=== PATIENT | female | born 1945 | race Caucasian/White ===

== ENCOUNTER → 2024-05-06 | Outpatient (CLI) | payer MEDICARE, MEDICAID, SELFPAY ==
[2024-05-06 11:42] LABS: Collection Type, Urine Clean Catch
[2024-05-06 11:43] LABS: Basophils % (Auto) 1 % (0-2.5); Eosinophils # (Auto) 0.1 Thou/mm3 (0.0-0.5); Eosinophils % (Auto) 1 % (0-10); Hematocrit 38.6 % (36.0-46.0); Hemoglobin 12.8 g/dL (12.0-16.0); Immature Granulocytes % (Auto) 0 % (0-0); Immature Granulocytes Auto 0.02 Thou/mm3 (0.00-0.00); Lymphocytes # (Auto) 1.7 Thou/mm3 (1.0-4.8); Lymphocytes % (Auto) 28 % (10-50); Mean Corpuscular HGB Conc 33.2 g/dl (31.0-37.0); Mean Corpuscular Hemoglobin 28.9 pg (25.0-35.0); Mean Corpuscular Volume 87 fL (80-100); Monocytes # (Auto) 0.6 Thou/mm3 (0.0-0.8); Monocytes % (Auto) 9 % (0-12); Neutrophils # (Auto) 3.5 Thou/mm3 (1.8-7.7); Neutrophils % (Auto) 60 % (37-80); Nucleated Red Blood Cell % 0 /100 WBC (0); Platelet Count 280 Thou/mm3 (140-440); RDW Standard Deviation 42.4 fL (36.4-46.3); Red Blood Count 4.43 Miln/mm3 (4.00-5.20); White Blood Count 5.9 Thou/mm3 (3.6-11.0)
[2024-05-06 11:50] LABS: Glucose Estimated Average 126 mg/dL (80-131)
[2024-05-06 11:57] LABS: Parathyroid Hormone Intact 141.2 pg/ml (18.5-88.0)
[2024-05-06 12:06] LABS: Alanine Aminotransferase 16 U/L (10-49); Albumin, Serum 4.6 gm/dL (3.4-4.8); Albumin/Globulin Ratio 2.6 (1.2-2.2); Alkaline Phosphatase 93 U/L (46-116); Anion Gap 8 (7-16); Aspartate Amino Transferase < 10 U/L (0-34); BUN/Creatinine Ratio 12 Ratio (12-20); Bilirubin,Total 0.5 mg/dL (0.3-1.2); Blood Urea Nitrogen 11 mg/dL (9-23); Carbon Dioxide 31.4 mMol/L (20.0-31.0); Chloride 103 mMol/L (98-107); Cholesterol 104 mg/dL (132-200); Creatinine (Component) 0.9 mg/dL (0.6-1.3); Globulin 1.8 gm/dL (2.3-3.5); Glucose 105 mg/dL (74-106); HDL Cholesterol 52 mg/dL (40-60); LDL Cholesterol,Calculated 30 mg/dL (0-130); Osmolality,Calculated 282 (275-295); Phosphorous 4.5 mg/dL (2.4-5.1); Potassium 4.8 mMol/L (3.4-5.1); Sodium 142 mMol/L (136-145); Thyroid Stimulating Hormone 2.03 uIU/mL (0.55-4.78); Total Protein 6.4 gm/dL (5.7-8.2); Triglycerides 112 mg/dL (30-150); eGFR > 60 See Note
[2024-05-06 12:39] LABS: Bilirubin,Urine Negative (Negative); Blood,Urine Negative (Negative); Clarity,Urine Clear (Clear/Hazy); Color,Urine Lt-Yellow (Lt Yel-Yel); Glucose, Urine Negative (Negative); Ketones,Urine Negative (Negative); Leukocyte Esterase,Urine Positive (Negative); Nitrite,Urine Negative (Negative); Protein,Urine Negative (Neg - Trace); RBC,Urine 3 /hpf (0-3); Specific Gravity,Urine 1.012 (1.001-1.035); Squamous Epithelial Cell,Urine 5 /hpf (0-5); Urobilinogen,Urine Negative mg/dL (0.0-1.0); WBC,Urine 33 /hpf (0-5)
== END | disposition home or self-care (01) ==
PROVIDERS: PCP Internal Medicine; Referring Provider Internal Medicine; Visit Provider Internal Medicine
DX: I10 Essential (primary) hypertension (principal); E78.5 Hyperlipidemia, unspecified; E83.52 Hypercalcemia
CPT/HCPCS: 36415; 80053; 80061; 81001; 83036; 83970; 84100; 84443; 85025

== ENCOUNTER → 2024-07-16 | Outpatient (CLI) | payer MEDICARE, MEDICAID, SELFPAY ==
[2024-07-16 12:16] LABS: Basophils % (Auto) 0 % (0-2.5); Eosinophils # (Auto) 0.1 Thou/mm3 (0.0-0.5); Eosinophils % (Auto) 2 % (0-10); Hematocrit 39.7 % (36.0-46.0); Immature Granulocytes % (Auto) 0 % (0-0); Immature Granulocytes Auto 0.01 Thou/mm3 (0.00-0.00); Lymphocytes # (Auto) 1.8 Thou/mm3 (1.0-4.8); Lymphocytes % (Auto) 32 % (10-50); Mean Corpuscular HGB Conc 32.7 g/dl (31.0-37.0); Mean Corpuscular Hemoglobin 28.2 pg (25.0-35.0); Mean Corpuscular Volume 86 fL (80-100); Monocytes # (Auto) 0.5 Thou/mm3 (0.0-0.8); Monocytes % (Auto) 9 % (0-12); Neutrophils # (Auto) 3.2 Thou/mm3 (1.8-7.7); Neutrophils % (Auto) 56 % (37-80); Nucleated Red Blood Cell % 0 /100 WBC (0); Platelet Count 223 Thou/mm3 (140-440); RDW Standard Deviation 42.1 fL (36.4-46.3); Red Blood Count 4.61 Miln/mm3 (4.00-5.20); White Blood Count 5.7 Thou/mm3 (3.6-11.0)
[2024-07-16 12:23] LABS: Glucose Estimated Average 126 mg/dL (80-131)
[2024-07-16 12:43] LABS: Parathyroid Hormone Intact 87.4 pg/ml (18.5-88.0)
[2024-07-16 12:43] LABS: Collection Type, Urine Clean Catch
[2024-07-16 12:55] LABS: Alanine Aminotransferase 14 U/L (10-49); Albumin, Serum 4.3 gm/dL (3.4-4.8); Albumin/Globulin Ratio 2.3 (1.2-2.2); Alkaline Phosphatase 89 U/L (46-116); Anion Gap 7 (7-16); Aspartate Amino Transferase < 10 U/L (0-34); BUN/Creatinine Ratio 19 Ratio (12-20); Bilirubin,Total 0.6 mg/dL (0.3-1.2); Blood Urea Nitrogen 15 mg/dL (9-23); Calcium 8.8 mg/dL (8.3-10.6); Calcium (Corrected) 8.8 mg/dL (8.5-10.1); Carbon Dioxide 30.1 mMol/L (20.0-31.0); Cardiac Risk Estimate 2.2 RATIO (3.7-5.6); Chloride 105 mMol/L (98-107); Cholesterol 124 mg/dL (132-200); Creatinine (Component) 0.8 mg/dL (0.6-1.3); Globulin 1.9 gm/dL (2.3-3.5); Glucose 116 mg/dL (74-106); HDL Cholesterol 57 mg/dL (40-60); LDL Cholesterol,Calculated 41 mg/dL (0-130); Osmolality,Calculated 284 (275-295); Phosphorous 4.4 mg/dL (2.4-5.1); Potassium 4.8 mMol/L (3.4-5.1); Sodium 142 mMol/L (136-145); Total Protein 6.2 gm/dL (5.7-8.2); Triglycerides 131 mg/dL (30-150); eGFR > 60 See Note
[2024-07-16 13:15] LABS: Bilirubin,Urine Negative (Negative); Blood,Urine Negative (Negative); Clarity,Urine Clear (Clear/Hazy); Color,Urine Lt-Yellow (Lt Yel-Yel); Glucose, Urine Negative (Negative); Ketones,Urine Negative (Negative); Leukocyte Esterase,Urine Negative (Negative); Nitrite,Urine Negative (Negative); Protein,Urine Negative (Neg - Trace); RBC,Urine 3 /hpf (0-3); Specific Gravity,Urine 1.016 (1.001-1.035); Squamous Epithelial Cell,Urine < 1 /hpf (0-5); Urobilinogen,Urine Negative mg/dL (0.0-1.0); WBC,Urine 1 /hpf (0-5)
== END | disposition home or self-care (01) ==
PROVIDERS: PCP Internal Medicine; Referring Provider Internal Medicine; Visit Provider Internal Medicine
DX: I10 Essential (primary) hypertension (principal); E78.5 Hyperlipidemia, unspecified; E83.52 Hypercalcemia
CPT/HCPCS: 36415; 80053; 80061; 81001; 83036; 83970; 84100; 84443; 85025

== ENCOUNTER → 2025-01-15 | Outpatient (CLI) | payer MEDICARE, MEDICAID, SELFPAY ==
[2025-01-15 11:54] LABS: Collection Type, Urine Clean Catch
[2025-01-15 12:18] LABS: Basophils # (Auto) 0.0 Thou/mm3 (0.0-0.2); Basophils % (Auto) 0 % (0-2.5); Eosinophils # (Auto) 0.1 Thou/mm3 (0.0-0.5); Eosinophils % (Auto) 2 % (0-10); Hematocrit 40.0 % (36.0-46.0); Hemoglobin 13.3 g/dL (12.0-16.0); Immature Granulocytes Auto 0.02 Thou/mm3 (0.00-0.00); Lymphocytes # (Auto) 2.2 Thou/mm3 (1.0-4.8); Lymphocytes % (Auto) 34 % (10-50); Mean Corpuscular HGB Conc 33.3 g/dl (31.0-37.0); Mean Corpuscular Hemoglobin 29.8 pg (25.0-35.0); Mean Corpuscular Volume 90 fL (80-100); Monocytes # (Auto) 0.5 Thou/mm3 (0.0-0.8); Monocytes % (Auto) 8 % (0-12); Neutrophils # (Auto) 3.7 Thou/mm3 (1.8-7.7); Neutrophils % (Auto) 56 % (37-80); Nucleated Red Blood Cell # 0.00 Thou/mm3 (0.00-0.00); Nucleated Red Blood Cell % 0 /100 WBC (0); Platelet Count 220 Thou/mm3 (140-440); RDW Standard Deviation 42.7 fL (36.4-46.3); Red Blood Count 4.46 Miln/mm3 (4.00-5.20); White Blood Count 6.6 Thou/mm3 (3.6-11.0)
[2025-01-15 12:22] LABS: Bilirubin,Urine Negative (Negative); Blood,Urine Negative (Negative); Clarity,Urine Clear (Clear/Hazy); Color,Urine Lt-Yellow (Lt Yel-Yel); Glucose, Urine Negative (Negative); Ketones,Urine Negative (Negative); Leukocyte Esterase,Urine Positive (Negative); Nitrite,Urine Negative (Negative); PH,Urine 6.5 (5.0-7.0); Protein,Urine Negative (Neg - Trace); RBC,Urine 2 /hpf (0-3); Specific Gravity,Urine 1.019 (1.001-1.035); Squamous Epithelial Cell,Urine 2 /hpf (0-5); Urobilinogen,Urine Negative mg/dL (0.0-1.0); WBC,Urine 7 /hpf (0-5)
[2025-01-15 12:30] LABS: Glucose Estimated Average 126 mg/dL (80-131); Hemoglobin A1C 6.0 % Hgb (4.8-6.0)
[2025-01-15 12:31] LABS: Parathyroid Hormone Intact 152.8 pg/ml (18.5-88.0)
[2025-01-15 12:36] LABS: Alanine Aminotransferase 21 U/L (10-49); Albumin, Serum 4.5 gm/dL (3.4-4.8); Albumin/Globulin Ratio 2.3 (1.2-2.2); Alkaline Phosphatase 68 U/L (46-116); Anion Gap 8 (7-16); Aspartate Amino Transferase 12 U/L (0-34); BUN/Creatinine Ratio 13 Ratio (12-20); Bilirubin,Total 0.6 mg/dL (0.3-1.2); Blood Urea Nitrogen 13 mg/dL (9-23); Calcium 10.7 mg/dL (8.3-10.6); Calcium (Corrected) 10.7 mg/dL (8.5-10.1); Carbon Dioxide 28.7 mMol/L (20.0-31.0); Cardiac Risk Estimate 2.0 RATIO (3.7-5.6); Chloride 106 mMol/L (98-107); Cholesterol 111 mg/dL (132-200); Creatinine (Component) 1.0 mg/dL (0.6-1.3); Globulin 2.0 gm/dL (2.3-3.5); Glucose 121 mg/dL (74-106); HDL Cholesterol 55 mg/dL (40-60); LDL Cholesterol,Calculated 34 mg/dL (0-130); Osmolality,Calculated 286 (275-295); Phosphorous 2.7 mg/dL (2.4-5.1); Potassium 4.6 mMol/L (3.4-5.1); Sodium 143 mMol/L (136-145); Thyroid Stimulating Hormone 2.41 uIU/mL (0.55-4.78); Total Protein 6.5 gm/dL (5.7-8.2); Triglycerides 112 mg/dL (30-150); eGFR 58 See Note
== END | disposition home or self-care (01) ==
PROVIDERS: PCP Internal Medicine; Referring Provider Internal Medicine; Visit Provider Internal Medicine
DX: I10 Essential (primary) hypertension (principal); E78.5 Hyperlipidemia, unspecified; E83.52 Hypercalcemia
CPT/HCPCS: 36415; 80053; 80061; 81001; 83036; 83970; 84100; 84443; 85025

== ENCOUNTER → 2025-02-11 | Outpatient (CLI) | payer MEDICARE, MEDICAID, SELFPAY ==
--- NOTE | 2025-02-11 12:40 | XR_ITS ---
Examination: Bone densitometry Date and time of exam: February 11, 2025, 1300 hours INDICATIONS: Hysterectomy age 30, family history mother hip fracture, prednisone administration 2 years Technique: Lumbar spine and hip total bone mineralization values of an calculated. Peak reference and age match control results have been displayed. Findings: Lumbar spine total bone mineralization is 0.748 gm/cm2. This is 2.7 standard deviations below peak reference. This is 0.1 standard deviations below age-matched controls. Hip total bone mineralization is 0.887 gm/cm2 This is 0.5 standard deviations below peak reference. This is 1.5 standard deviations above age-matched controls Impression: There is osteoporosis based on lumbar spine measurements. There is osteopenia based on hip measurements Lumbar mineralization is decreased 4.7% compared with June 28, 2022 Hip mineralization is decreased 3.2% compared with June 28, 2022
--- NOTE | 2025-02-11 13:00 | XR_ITS ---
Examination: Screening digital mammography, bilateral Computer aided detection 3-D breast Tomosynthesis, bilateral Date and time of exam: February 11, 2025, 1258 hours, compared to mammograms dating to March 25, 2023 Indication: Screening Technique: Nonmagnified MLO, CC views of the breasts to been obtained, reconstructed from 3-D Tomosynthesis images. R2 computer aided detection program utilized for evaluation of suspicious masses and/or abnormal calcifications. 3-D Tomosynthesis images obtained. Findings: Scattered areas of fibroglandular density. Benign calcifications. No interval suspicious masses Impression: BI-RADS category II: Benign Findings. Recommend 1 year follow-up mammogram.
== END | disposition home or self-care (01) ==
LOC: CDIM 12:33
PROVIDERS: PCP Internal Medicine; Referring Provider Internal Medicine; Visit Provider Internal Medicine
DX: Z12.31 Encounter for screening mammogram for malignant neoplasm of breast (principal); R92.323 Mammographic fibroglandular density, bilateral breasts; R92.1 Mammographic calcification found on diagnostic imaging of breast; M81.0 Age-related osteoporosis without current pathological fracture; M85.89 Other specified disorders of bone density and structure, multiple sites
CPT/HCPCS: 77063; 77067; 77080